=== PATIENT | male | born 1955 | race Two or more races ===

== ENCOUNTER 2022-01-29 11:53 | Day surgery (SDC) | payer SELFPAY ==
[2022-01-29] MEDS ORDERED: Acetaminophen 325 MG Tab PO ONE (13:15)
[2022-01-29] MEDS ORDERED: Lidocaine 1% with EPINEPHrine 1:100,000 20 ML MDV ONE (13:40)
[2022-01-29] MEDS ORDERED: Bupivacaine 0.5%/EPINEPHrine 1:200,000 50 ML MDV ONE (13:40)
[2022-01-29] MEDS ORDERED: Midazolam 1 MG/ML 2 ML SDV ONE (13:59)
[2022-01-29] MEDS ORDERED: fentaNYL 100 MCG/2 ML SDV ONE (13:59)
[2022-01-29] MEDS ORDERED: Propofol 200 MG/20 ML SDV ONE (14:00)
[2022-01-29] MEDS ORDERED: Lidocaine 1% 4 ML ONE (14:01)
[2022-01-29 16:12] VITALS: BP 112/78; PULSE 70
== END 2022-01-29 16:02 | disposition home or self-care (01) ==
LOC: JD.SDS 11:53
PROVIDERS: ATTEND Surgery
DX: L72.3 Sebaceous cyst (principal); E78.00 Pure hypercholesterolemia, unspecified; Z79.899 Other long term (current) drug therapy; Z98.890 Other specified postprocedural states; Z87.891 Personal history of nicotine dependence
CPT/HCPCS: 11406; A9270; J2250; J2704; J3010; J3490